=== PATIENT | male | born 1945 ===

== ENCOUNTER 2017-11-30 10:08 | Day surgery (SDC) | payer MEDICARE ==
[2014-08-21 09:14] VITALS: BMI 27.7
[2017-11-30 12:09] LABS: MEAN CORPUSCULAR HEMOGLOBIN 28.9 pg (27.0-31.0); MEAN CORPUSCULAR HGB CONC 33.1 g/dL (33.0-37.0); MEAN PLATELET VOLUME 8.9 fL (7.2-11.7); RBC 4.09 Mil/uL (4.40-5.90); RED CELL DISTRIBUTION WIDTH 14.4 % (11.5-14.5); WHITE BLOOD COUNT 7.7 K/uL (4.8-10.8)
[2017-11-30 12:10] LABS: HEMOGLOBIN 11.8 g/dL (12.0-18.0); MEAN CELL VOLUME 87.3 fL (80.0-94.0)
[2017-11-30 12:14] LABS: PROTHROMBIN TIME 44.8 SECONDS (9.7-12.2)
[2017-11-30 12:22] LABS: BLOOD UREA NITROGEN 15 mg/dL (9-20); CALCIUM 9.7 mg/dl (8.6-10.4); GFR NON-AFRICAN AMERICAN > 60
[2017-11-30 12:30] LABS: INR 4.1
[2017-11-30] MEDS ORDERED: Propofol 10 mg/ml Inj (20 ML) ONE (12:36)
[2017-11-30] MEDS ORDERED: Etomidate 20 mg/10ml Inj IV ONE (12:36)
[2017-11-30] MEDS ORDERED: Lidocaine 4% (Laryng-O-Jet) Kit MM ONE (13:07)
--- NOTE | 2017-11-30 14:42 | CARD ---
APPROVED REPORT Date of service: 11/30/2017 EXAM: Transesophageal echocardiogram with color flow Doppler and Synchronized Cardioversion. INDICATION Atrial Fibrillation Mitral Valve E/A ratio0.0 TDI E/Lateral E'0.0E/Medial E'0.0 Tricuspid Valve TR Peak [id number] Peak Gr.22mmHg LEFT VENTRICLE The left ventricle is normal size. There is normal left ventricular wall thickness. The left ventricular function is mildly reduced. The left ventricular ejection fraction is mildly reduced. No regional wall motion abnormalities noted. No left ventricle thrombus noted on this study. There is no ventricular septal defect visualized. There is no left ventricular aneurysm. There is no mass noted in the left ventricle. RIGHT VENTRICLE The right ventricle is moderately dillated amd moderately reduced function. There is normal right ventricular wall thickness. ATRIA The left atrium is dilated. There is a thrombus noted in the left atrial appendage. LA emptying velocity is low. The right atrium size is moderately dilated. Color doppler does not demonstrate an intra cardiac shunt. The interatrial septum is intact with no evidence for an atrial septal defect. AORTIC VALVE The aortic valve is normal in structure and function. No aortic regurgitation is present. There is no aortic valvular stenosis. There is no aortic valvular vegetation. MITRAL VALVE The mitral valve is normal in structure and function. There is no evidence of mitral valve prolapse. There is no mitral valve stenosis. There is moderate mitral valve regurgitation noted. TRICUSPID VALVE The tricuspid valve is normal in structure and function. There is mild tricuspid valve regurgitation noted. There is no tricuspid valve prolapse or vegetation. There is no tricuspid valve stenosis. PULMONIC VALVE The pulmonary valve is normal in structure and function. There is no pulmonic valvular regurgitation. There is no pulmonic valvular stenosis. GREAT VESSELS The aortic root is normal in size. The ascending aorta is normal in size. Several area of irregular calcified plaque are noted i the descending aorta, up to .6 cm in height. The pulmonary artery is normal. PERICARDIAL EFFUSION The pericardium appears normal. There is no pleural effusion. <Conclusion> The left ventricular function is mildly reduced. The left atrium is dilated. There is a thrombus noted in the left atrial appendage. LA emptying velocity is low. The right atrium size is moderately dilated. There is moderate mitral valve regurgitation noted. The right ventricle is moderately dillated amd moderately reduced function. The ascending aorta is normal in size. Several area of irregular calcified plaque are noted i the descending aorta, up to .6 cm in height.
[2017-12-01 17:07] VITALS: RESP 18; O2SAT 100
--- NOTE | 2017-12-01 23:03 | CARD ---
APPROVED REPORT Date of service: 11/30/2017 EKG Measurement Heart [id number] <Conclusion> Atrial fibrillation Right bundle branch block Possible Inferior infarct, age undetermined Abnormal ECG
== END 2017-11-30 14:00 | disposition home or self-care (01) ==
LOC: C.CATHLAB 10:08
PROVIDERS: ATTEND Nuclear Medicine Nuclear Cardiology
DX: I48.91 Unspecified atrial fibrillation (principal); I08.1 Rheumatic disorders of both mitral and tricuspid valves
CPT/HCPCS: 36415; 80048; 82948; 85027; 85610; 85730; 93312; J2001; J2704

== ENCOUNTER 2018-04-25 11:29 | Outpatient (CLI) | payer MEDICARE | END 2018-04-25 11:30 | disposition home or self-care (01) | LOC: C.RADIC 11:29 ==